=== PATIENT | female | born 1985 | race Two or more races ===

== ENCOUNTER 2025-03-05 11:39 | Emergency (ER) | payer MEDICAID, OTHER ==
[~2025-03-05] VITALS: Ht 157.5 cm; Wt 68.9 kg
[2025-03-05 12:30] VITALS: BP 130/81; PULSE 94; RESP 18; TEMP 98.4; O2SAT 97
--- NOTE | 2025-03-05 12:39 | ED.PDOC ---
Musculoskeletal HPI Comments 39-year-old female with a past medical history of muscular dystrophy presents to the emergency department with a chief complaint of LT knee pain onset 1 week. Patient states she has been experiencing LT knee pain for the past week, believes it "popped out" has tried to reduce knee at home, has not been able to. Patient states she experiences similar symptoms in the past, is usually able to improve symptoms at home. She took [place] for pain prior to ED arrival. No other symptoms or modifying factors present at this time. Denies trauma to the knee or recent fall Denies skin color changes around the knee Denies masses around the knee Denies fever chills night sweats nausea vomiting Chief Complaint: Lower Extremity Time Seen by MD: 12:25 Primary Care Provider: MARCIA Espitia Notes: Medications, Allergies Allergies: Coded Allergies: Bupropion (Verified Allergy, Unknown, 03/05/25) Information Source: Patient Mode of Arrival: Ambulatory Location: Left Extremity Location: Knee Timing: Weeks Prehospital treatment: Pain Meds ([place]) Severity: Moderate Able to Move Extremity: Yes Bear Weight: Limited Pain: Moderate Mechanism: Spontaneous Circumstances: Spontaneous Symptoms: Pain DVT Risk Factors: NONE Associated signs and symptoms: Knee pain Past Medical History Past Medical History (Other): muscular dystrophy Surgical History: Denies all surgeries [employer] History: No Pertinent [employer] History Family History Family History: Reviewed,noncontributory to illness, No family hx of Cancer, No family hx of DM, No family hx of Heart verónica, No family hx of HTN, No family hx ofKidney verónica, No family hx of Liver verónica, No family hx of Lung verónica, No family hx of Stroke Social History Smoker: Non-Smoker Alcohol: Denies ETOH Use Drugs: Denies Drug Use Lives In: Home All Other Systems: Reviewed and Negative (as per HPI) Physical Exam General Appearance: No Apparent Distress, Normal HEENT: Normal ENT Inspection, Pharynx Normal, TMs Normal Neck: Full Range of Motion, Non-Tender, Normal, Normal Inspection Respiratory: Chest Non-Tender, Lungs Clear, No Accessory Muscle Use, No Respiratory Distress, Normal Breath Sounds Cardiovascular: No Edema, No JVD, No Murmur, No Gallop, Normal Peripheral Pulses, Regular Rate/Rhythm Breast Exam: Deferred Gastrointestinal: No Organomegaly, Non Tender, No Pulsatile Mass, Normal Bowel Sounds, Soft Genitalia: Deferred Pelvic: Deferred Rectal: Deferred Extremities: No calf tenderness, Normal capillary refill, No pedal edema Musculoskeletal : Location: Left Extremity Location: Knee (no gross abnormality to patella on insepcton, no echymosis, swelling or open wounds, subjective pain with flexion and extension of knee. No signs of crepitus, no joint instability, valgus and vargus stress test negative. anterior/psoterior drawer test negative. No erythema, STS or warmth to palpation below knee, no abnormailty compared to unaffected extremity. 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 Was a procedure done?: No X-Ray, Labs, Meds, VS Vital Signs Date Time Temp Pulse Resp B/P (MAP) Pulse Ox O2 Delivery O2 Flow Rate FiO2 03/05/25 12:30 94 03/05/25 12:30 98.4 94 18 130/81 (97) 97 98.4 03/05/25 11:55 98.4 94 18 130/81 (97) 97 98.4 X-Ray, Labs, Meds, VS Comment 39-year-old female with a past medical history of muscular dystrophy presents to the emergency department with a chief complaint of LT knee pain onset 1 week. Patient arrives alert and oriented, ABC's intact, afebrile, vital signs stable, saturating well in room air Diagnostic imaging ordered by me and results interpreted by radiology : Patient was given:_. Tolerated medications with no adverse reaction. Additional MDM Review of External, Non-ED records: External records reviewed. Discussion with independent historian (EMS, family) history obtained from the patient/parents (if applicable) at bedside Chronic conditions affecting care: muscular dystrophy Social determinants of health affecting care: None Consideration of admission (observation or admission): I considered escalation of care to admission for this patient, however given the reassuring workup, the patient is safe for outpatient management. Time of 1ST Reevaluation: 12:55 Reevaluation 1ST: Improved Patient Education/Counseling: Diagnosis, Treatment Family Education/Counseling: No Family Present Departure 1 Departure Time of Disposition: 13:15 Impression: Primary Impression: Left knee pain Qualified Codes: M25.562 - Pain in left knee Disposition: HOME / SELF CARE / HOMELESS Condition: Stable Discharged With: Self Critical Care Note Critical Care Time?: No Stability Stability form required: No Heart Score Heart Score: Heart Score Response (Comments) Value History N/A 0 EKG N/A 0 Age N/A 0 Risk Factors N/A 0 Troponin N/A 0 Total 0 I personally scribed for CRIS JOHNSON NP ([email or web address]) on 03/05/25 at 12:39. Electronically submitted by Mikki Armenta ([email or web address]). CRIS JOHNSON NP Mar 05, 2025 12:39
--- NOTE | 2025-03-05 13:14 | DVH ---
CLINICAL INDICATION: R/o dislocation TECHNIQUE: 3 radiographic views of the left knee were obtained. Comparison: None FINDINGS/IMPRESSION: There is no evidence of acute fracture or dislocation. The visualized joint space is well maintained. The alignment is anatomical. There is no radiopaque foreign body.
== END 2025-03-05 13:32 | disposition home or self-care (01) ==
LOC: ER 11:39
DX: M25.562 Pain in left knee (principal); Z88.5 Allergy status to narcotic agent
CPT/HCPCS: 73562